=== PATIENT | male | born 1940 | race Caucasian/White ===

== ENCOUNTER 2024-10-04 21:06 | Emergency (ER) | payer MEDICARE ==
[2024-10-04 21:50] LABS: BILIRUBIN,URINE MODERATE (NEGATIVE); COLOR,URINE YELLOW (YELLOW); GLUCOSE,URINE NEGATIVE (NEGATIVE); KETONES,URINE NEGATIVE (NEGATIVE); LEUKOCYTE ESTERASE,URINE NEGATIVE (NEGATIVE); NITRITE,URINE NEGATIVE (NEGATIVE); OCCULT BLOOD,URINE SMALL (NEGATIVE); PH,URINE 5.5 (5.0-8.0); PROTEIN,URINE NEGATIVE (NEGATIVE); UROBILINOGEN,URINE 0.2 EU/dL (0.2)
[2024-10-04 21:51] LABS: APPEARANCE,URINE SLIGHTLY CLOUDY (CLEAR)
[2024-10-04 21:56] LABS: RBC,URINE 20-30 /HPF (NOT SEEN); WBC,URINE 0-5 /HPF (NOT SEEN)
[2024-10-04 21:57] LABS: BACTERIA,URINE RARE /HPF (NOT SEEN); HYALINE CASTS,URINE RARE; MUCUS,URINE MANY /LPF (NOT SEEN); SQUAMOUS EPITHELIAL CELLS,UR NOT SEEN /HPF (NOT SEEN)
== END 2024-10-04 22:16 | disposition home or self-care (01) ==
LOC: VM.ED 21:06
DX: R33.9 Retention of urine, unspecified (principal); Z88.0 Allergy status to penicillin
CPT/HCPCS: 51702; 81001; 99283